=== PATIENT | female | born 1950 ===

== ENCOUNTER 2025-05-01 15:35 | Outpatient (AMB) | payer OTHER, SELFPAY ==
--- OUTSIDE RECORDS SUMMARY | 2025-05-01 16:46 | XMS_ITS | Patient Health Record ---
Author Organization [facility] Address [address] [place] [address] Care Team Providers Care Carrier Operator Name Role Phone JULIO VALDES M.D. Primary Care Provider PATRICIA Pederson Unavailable [phone] Allergies Allergen (clinical drug ingredient) Drug/Non Drug Allergy documented on EMR Reaction Allergy Type Onset Date Status codeine CODEINE Nightmares Drug Allergy Active Reason For Referral No Information Medications Medication SIG (Take, Route, Frequency, Duration) Notes Start Date End Date Status Magnesium 300 MG 1 capsule with a julian l Orally Once a day Active Vitamin K 100 MCG 1 tablet Orally Once a day; Duration: 30 day(s) Active Claritin 10 MG 1 tablet Orally Once a day; Duration: 30 day(s) Active Vitamin B Complex Ac tive Atorvastatin Calcium 20 MG Oral; Duration: 90 Active Calcium + D Active Omeprazole 20 MG as directed Oral Onc e a day prn Active Reclast 5 MG/100ML as directed Intravenous 07/2020 Active Fish Oil 1200MG 1 ORAL daily; Durati on: -3 05/18/2012 Active Flonase 50MCG 2 Nasal daily; Durat ion: -3 02/06/2013 Active Estradiol Vaginal Cream 0.01% 1 Gram Vaginally Twice a week; Duration: 90 days 09/03/2019 Active Multivitamins 1 ORAL daily; Durati on: -3 05/18/2012 Active Losartan Potassium 25 MG 1 tablet Orally Once a day Active Vitamin D 1000 UNIT 1 tablet Orally Once a day Active Social History Tobacco Use: Social History Observation Description Date Details (start date - stop date) Never Smoker NA - NA Tobacco Use/Smoking Question Answer Notes Are you a nonsmoker Alcohol Screen (Audit-C) Question Answer Notes Did you have a drink contain ing alcohol in the past year? Yes How often did you have a dri nk containing alcohol in the past year? 2 to 3 times a week (3 points) How many drinks did you have on a typical day when you were drinking in the past year? 1 or 2 drinks (0 point) Points 3 Interpretation Positive Sexual History Question Answer Notes Had sex in the past 12 months (vaginal, oral, or anal)? 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 CONTRACEPTION: menopause .CE: Smoking: Never a smoker .CE: ALCOHOL: socially drinks alcohol TEXT MESSAGING WHILE DRIVING: no SUNSCREEN: yes ILLICIT DRUGS: no SEATBEALT: yes Problems Problem Type SNOMED Code ICD Code Onset Dates Problem Status W/U Status Risk Notes Problem Postmenopausal atrophic vaginitis (60904999) Postmenopausal atrophic vaginitis (N95.2) Active confirmed Problem Postmenopausal bleeding (77586368) Postmenopausal bleeding (N95.0) Active confirmed Problem Age-related osteoporosis (291230236) Age-related osteoporosis without current pathological fracture (M81.0) Active confirmed Problem Family history of malignant neoplasm of breast (954153830) Family history of malignant neoplasm of breast (Z80.3) Active confirmed Problem Candidal vulvovaginitis (47167873) Candidiasis of vulva and vagina (112.1) Active confirmed Other Problem Benign essential hypertension (0145565) Essential hypertension, benign (401.1) Active confirmed Major Problem Uterine prolapse without vaginal wall prolapse (49800904) Uterine prolapse without mention of vaginal wall prolapse (618.1) Active confirmed Diag Problem Urinary tract infectious disease (disorder) (25536458) Urinary tract infection, site not specified (599.0) Active confirmed Diag Problem Menopausal symptom (46140516) Symptomatic menopausal or female climacteric states (627.2) Active confirmed Major Problem Postmenopausal atrophic vaginitis (91467238) Postmenopausal atrophic vaginitis (627.3) Active confirmed Diag Problem Osteoporosis (62899808) Unspecified osteoporosis (733.00) Active confirmed Diag Problem Gynecological examination normal (472174370001109) Routine gynecological examination (V72.31) Active confirmed Major Problem Screening for malignant neoplasm of colon (320940760) Special screening for malignant neoplasms, colon (V76.51) Active confirmed Major Problem Cystocele (569385072) Cystocele, unspecified (N81.10) Active confirmed Diag Encounters Encounter Location Date Provider Diagnosis [place] [address] [facility] [address] [place] [address] 10/15/2024 PATRICIA WEEKS Mammographic heterogeneous density, bilateral breasts R92.333 Assessments Encounter Date Diagnosis (ICD Code) Assessment Notes Treatment Notes Treatment Clinical Notes Section Notes 10/15/2024 Mammographic heterogeneous density, bilateral breasts (ICD-10 - R92.333) Plan Of Treatment Pending Test Test Name Order Date Ultrasound : Breasts, bilateral 08/23/20 Urinalysis, Complete 04/14/2020 MAMMOGRAM, SCREENING 08/18/2015 Urinalysis 10/09/2020 THIN PREP,HPV,SAJAN IF HPV+ (>29YR)(SCRN) 08/26/2017 Screening Bilateral Breast Ultrasound Screening Bilateral Breast Ultrasound Screening Bilateral Breast Ultrasound Screening Bilateral Breast Ultrasound Screening Bilateral Breast Ultrasound Bilateral Breast MRI 09/10/2022 MM Digital Screening Mammogram 3D 2020 MM Digital Screening Mammogram 3D 2021 MM Digital Screening Mammogram 3D 2023 Future Test Test Name Order Date Bilateral Breast MRI 08/05/2021 Next Appt Details Provider Name:PATRICIA Kaur, 11/01/2025 10:00:00 AM, [address], [address], [place], [address], Insurance Providers Payer Name Payer Address Payer Phone Subscriber Number Group Number Insured Name Patient Relationship to Insured Coverage Start Date Coverage End Date [employer] MEDICARE [address] [place] [address] [phone] [id number] LYNDSEY CALDERÓN Self - patient is the insured Medical (General) History Medical History History ICD Code Postmenopausal atrophic vaginitis N95.2 Cystocele, unspecified N81.10 Age-related osteoporosis without current pathological fracture M81.0 Urinary tract infection, site not specif ied N39.0 Incomplete uterovaginal prolapse N81.2 Essential (primary) hypertension I10 Menopausal and female climacteric states N95.1 Candidiasis of vulva and vagina B37.3 Inconclusive mammogram R92.2 Family history of malignant neoplasm of breast Z80.3 COVID-19 U07.1 Surgical History Surgery Date(Month/Year) [place] [facility] Colonoscopy TVH/BSO, A-P repair, sling, colpocleisis 12/09/20 Hospitalization History Reason Date(Month/Year) 2 Vaginal Deliveries See Surgical Hx
== END 2025-05-01 15:37 | disposition home or self-care (01) ==
LOC: HO.HMGAL 15:35
PROVIDERS: PCP Internal Medicine; Visit Provider Registered Nurse Emergency
DX: J30.89 Other allergic rhinitis (principal)
CPT/HCPCS: 95117; 95165

== ENCOUNTER 2025-05-27 13:40 | Outpatient (AMB) | payer OTHER, SELFPAY | END 2025-05-27 13:41 | disposition home or self-care (01) | LOC: HO.HMGAL 13:40 | PROVIDERS: PCP Internal Medicine; Visit Provider Registered Nurse Emergency | DX: J30.89 Other allergic rhinitis (principal) | CPT/HCPCS: 95117; 95165 ==

== ENCOUNTER 2025-06-24 15:18 | Outpatient (AMB) | payer OTHER, SELFPAY ==
--- OUTSIDE RECORDS SUMMARY | 2025-06-24 19:30 | XMS_ITS | Patient Health Record ---
Author Organization [facility] Address [address] [place] [address] Care Team Providers Care Student Union Consultant Name Role Phone JULIO VALDES M.D. Primary Care Provider PATRICIA Pederson Unavailable [phone] Allergies Allergen (clinical drug ingredient) Drug/Non Drug [...] Status Risk Notes Problem Postmenopausal atrophic vaginitis (61292502) Postmenopausal atrophic vaginitis (N95.2) Active confirmed Problem Postmenopausal bleeding (17251570) Postmenopausal bleeding (N95.0) Active confirmed Problem Age-related osteoporosis (072399967) Age-related osteoporosis without current pathological fracture (M81.0) Active confirmed Problem Family history of malignant neoplasm of breast (426084788) Family history of malignant neoplasm of breast (Z80.3) Active confirmed Problem Candidal vulvovaginitis (36618163) Candidiasis of vulva and vagina (112.1) Active confirmed Other Problem Benign essential hypertension (5962181) Essential hypertension, benign (401.1) Active confirmed Major Problem Uterine prolapse without vaginal wall prolapse (83099464) Uterine prolapse without mention of vaginal wall prolapse (618.1) Active confirmed Diag Problem Urinary tract infectious disease (disorder) (94339479) Urinary tract infection, site not specified (599.0) Active confirmed Diag Problem Menopausal symptom (88395897) Symptomatic menopausal or female climacteric states (627.2) Active confirmed Major Problem Postmenopausal atrophic vaginitis (87942515) Postmenopausal atrophic vaginitis (627.3) Active confirmed Diag Problem Osteoporosis (31920160) Unspecified osteoporosis (733.00) Active confirmed Diag Problem Gynecological examination normal (314328451269686) Routine gynecological examination (V72.31) Active confirmed Major Problem Screening for malignant neoplasm of colon (717534326) Special screening for malignant neoplasms, colon (V76.51) Active confirmed Major Problem Cystocele (872681706) Cystocele, unspecified (N81.10) Active confirmed Diag Encounters Encounter Location Date Provider Diagnosis [place] [address] [facility] [address] [place] [address] 10/15/2024 PATRICIA WEEKS Mammographic heterogeneous density, bilateral [...] Provider Name:PATRICIA Kaur, 11/01/2025 10:00:00 AM, [address] [facility] [address], [address], [place], [address], Insurance Providers Payer Name Payer Address Payer Phone Subscriber Number Group Number Insured Name Patient Relationship to Insured Coverage Start Date Coverage End Date AET[employer] MEDICARE [address] [place] [address] [id number] LYNDSEY CALDERÓN Self - patient is the [...] Z80.3 COVID-19 U07.1 Surgical History Surgery Date(Month/Year) [place] [facility] Colonoscopy TVH/BSO, A-P repair, sling, colpocleisis 12/09/20 Hospitalization History Reason Date(Month/Year) 2 Vaginal Deliveries See Surgical Hx
== END 2025-06-24 15:19 | disposition home or self-care (01) ==
LOC: HO.HMGAL 15:18
PROVIDERS: PCP Internal Medicine; Visit Provider Registered Nurse Emergency
DX: J30.89 Other allergic rhinitis (principal)
CPT/HCPCS: 95117; 95165

== ENCOUNTER 2025-07-24 11:36 | Outpatient (AMB) | payer OTHER, SELFPAY ==
--- OUTSIDE RECORDS SUMMARY | 2025-07-24 22:42 | XMS_ITS | Patient Health Record ---
Author Organization [facility] Address [address] [facility] [address] [facility] [address] [place] [address] Care Team Providers Care Shirt Trimmer Name Role Phone JULIO VALDES M.D. Primary Care Provider PATRICIA Pederson Unavailable [phone] Allergies Allergen (clinical drug ingredient) Drug/Non Drug [...] Status Risk Notes Problem Postmenopausal atrophic vaginitis (90842999) Postmenopausal atrophic vaginitis (N95.2) Active confirmed Problem Postmenopausal bleeding (75340196) Postmenopausal bleeding (N95.0) Active confirmed Problem Age-related osteoporosis (398409781) Age-related osteoporosis without current pathological fracture (M81.0) Active confirmed Problem Family history of malignant neoplasm of breast (248964590) Family history of malignant neoplasm of breast (Z80.3) Active confirmed Problem Candidal vulvovaginitis (36706720) Candidiasis of vulva and vagina (112.1) Active confirmed Other Problem Benign essential hypertension (3236272) Essential hypertension, benign (401.1) Active confirmed Major Problem Uterine prolapse without vaginal wall prolapse (01121711) Uterine prolapse without mention of vaginal wall prolapse (618.1) Active confirmed Diag Problem Urinary tract infectious disease (disorder) (56836255) Urinary tract infection, site not specified (599.0) Active confirmed Diag Problem Menopausal symptom (23379071) Symptomatic menopausal or female climacteric states (627.2) Active confirmed Major Problem Postmenopausal atrophic vaginitis (51266402) Postmenopausal atrophic vaginitis (627.3) Active confirmed Diag Problem Osteoporosis (44614035) Unspecified osteoporosis (733.00) Active confirmed Diag Problem Gynecological examination normal (318999520066177) Routine gynecological examination (V72.31) Active confirmed Major Problem Screening for malignant neoplasm of colon (126756338) Special screening for malignant neoplasms, colon (V76.51) Active confirmed Major Problem Cystocele (948913936) Cystocele, unspecified (N81.10) Active confirmed Diag Encounters Encounter Location Date Provider Diagnosis [place] [address] [facility] [address] [place] [address] 10/15/2024 PATRICIA WEEKS Mammographic heterogeneous density, bilateral [...] Provider Name:PATRICIA Kaur, 11/01/2025 10:00:00 AM, [address] [facility] [facility], [address], [place], [address], Insurance Providers Payer Name Payer Address Payer Phone Subscriber Number Group Number Insured Name Patient Relationship to Insured Coverage Start Date Coverage End Date A[employer]NA MEDICARE [address] [place] [address] [id number] LYNDSEY CALDERÓN Self - patient is the [...] Z80.3 COVID-19 U07.1 Surgical History Surgery Date(Month/Year) [place] Te[facility] Colonoscopy TVH/BSO, A-P repair, sling, colpocleisis 12/09/20 Hospitalization History Reason Date(Month/Year) 2 Vaginal Deliveries See Surgical Hx
== END 2025-07-24 11:37 | disposition home or self-care (01) ==
LOC: HO.HMGAL 11:36
PROVIDERS: PCP Internal Medicine; Visit Provider Registered Nurse Emergency
DX: J30.89 Other allergic rhinitis (principal)
CPT/HCPCS: 95117; 95165

== ENCOUNTER 2025-08-26 13:26 | Outpatient (AMB) | payer OTHER, SELFPAY ==
--- OUTSIDE RECORDS SUMMARY | 2025-08-22 04:40 | XMS_ITS ---
Author Organization [facility] Address [address] [place] [address] Care Team Providers Care Assemblies And Installations Inspector Name Role Phone JULIO VALDES M.D. Primary Care Provider PATRICIA Pederson Unavailable [phone] Allergies Allergen (clinical drug ingredient) Drug/Non Drug Allergy documented on EMR Reaction Allergy Type Onset Date Status codeine CODEINE Nightmares Drug Allergy Active REASON FOR VISIT BURST BLOOD VESSEL IN VAGINAL AREA Medications Medication SIG (Take, Route, Frequency, Duration) Notes Start Date End Date Status Atorvastatin Calcium 10 MG 1 tablet Oral ly Once a day; Duration: 90 days Active Claritin 10 MG 1 tablet Orally Once a day; Duration: 30 day(s) Active Magnesium 300 MG 1 capsule with a julian l Orally Once a day Active Vitamin K 100 MCG 1 tablet Orally Once a day; Duration: 30 day(s) Active Vitamin D 1000 UNIT 1 tablet Orally Once a day Active Calcium + D Active Fish Oil 1200MG 1 ORAL daily; Durati on: -3 05/18/2012 Active Losartan Potassium 25 MG 1 tablet Orally Once a day Active Flonase 50MCG 2 Nasal daily; Durat ion: -3 02/06/2013 Active Multivitamins 1 ORAL daily; Durati on: -3 05/18/2012 Active Estradiol Vaginal Cream 0.01% 1 Gram Vaginally Twice a week; Duration: 90 days 09/03/2019 Active Restasis Active Vitamin B Complex Ac tive Omeprazole 20 MG as directed Oral Onc e a day prn Active Social History Tobacco Use: Social History [...] with Men only Prevention strategies discussed: Other Vital Signs Height 61.00 in 08/22/2025 Weight 131 lbs 08/22/2025 BMI 24.75 kg/m2 08/22/2025 Blood pressure systolic 128 mm Hg 08/22/20 Blood pressure diastolic 78 mm Hg 025 Temperature 97.8 degrees Fahrenheit 08/22/20 25 Encounters Encounter Location Date Provider Diagnosis [facility] [address] [place] [address] 08/22/2025 PATRICIA WEEKS Hemangioma of skin a nd subcutaneous tissue D18.01 Assessments Encounter Date Diagnosis (ICD Code) Assessment Notes Treatment Notes Treatment Clinical Notes Section Notes 08/22/2025 Hemangioma of skin and subcutaneous tissue (ICD-10 - D18.01) Area cleaned and bleeding source identified - treated with silver nitrate (chemical cautery) and direct pressure with excellent hemostasis. She is encouraged to wear loose clothing today and to only blot to dry postvoid. Advised to call with recurrence, but after the close of business, to [facility]. 08/22/2025 Other Plan Of Treatment Treatment Notes Assessment Notes Hemangioma of skin and subcutaneous tiss ue Area cleaned and bleeding source identified - treated with silver nitrate (chemical cautery) and direct pressure with excellent hemostasis. She is encouraged to wear loose clothing today and to only blot to dry postvoid. Advised to call with recurrence, but after the close of business, to report [facility]. Next Appt Details Follow Up: prn, Reason: Provider Name:PATRICIA Kaur, 11/01/2025 10:00:00 AM, [address], [place], [address], Progress Notes * SHIVANI CALDERÓN:1950 ( 75 yo F)Acc No.[id number]:08/22/2025 PROGRESS NOTES Patient: LYNDSEY LUIS Provider: Vega WEEKS MD :1950 A ge:75 Y S ex:Female Date:08/22/2025 Address:[address] [place], [place] [id number] Pcp:JULIO VALDES M.D. Subjective: * Chief Complaints: * B URST BLOOD VESSEL IN VAGINAL AREA * HPI: G YN (Problems): 75 year old female presents with c/o Abnormal bleeding: D ate problem started: 10/23/2024 C urrent bleeding problem: b leeding from a vulvar blood vessel A ssociated signs and symptoms: d enies lightheadedness - she is saturating pads States it is absolutely not vaginal bleeding, as she's had a TVH/BSO, A-P repair, sling, colpocleisis. * ROS: G eneral/Constitutional: Denies C hills. D enies F ever. D enies L ightheadedness. D enies W eight gain. D enies W eight loss. E NT: Denies N osebleed. G astrointestinal: Denies A bdominal pain. D enies B lood in stool.?Denies H ematemesis. D enies R ectal bleeding. H ematology: Denies E asy bruising. D enies F amily member with bleeding problems. W omen Only: Denies I rregular menses. D enies V aginal bleeding between periods. G enitourinary: Denies B lood in urine. 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 S exual activity n ot currently sexually active. L ast Pap Smear: 10/27/16 NIL, NEG HRHPV. M ammogram: 50-75% density, 04/11/23 Breast Ultrasound, 03/28/23 50-75% density, 09/10/21 NICKI Breast MRI, 03/02/21 50-75% density, 02/28/20 50-75% density, 06/07/19 Bilateral Breast U/S, 12/04/18 50-75% density, 10/2017 normal, 05/2018 Rt Breast Aspiration - neg, 10/21/2016 Bilateral Mammo with additional views Rt Breast, 10/17/15 Bilateral Breast MRI, 04/2015 , 50-75% density.? L MP and menses m enopause. H ysterectomy: T VH/BSO 12/09/20. C olonoscopy 2 023, 2011. B one Density: 2 022 PER PT, Per Pt done 2017, 02/[address] Madhuri Barnes, 02/2012. G YN HISTORY MISC. DB LETTER #2 WAS SENT. Edith Score Lifetime Risk = 22.7%. * OB History: T otal pregnancies 2 . T otal living children 2 . N VD 2 . * Surgical History: [place] Colonoscopy TVH/BSO, A-P repair, sling, colpocleisis 12/09/20 * Hospitalization/Major Diagno stic Procedure: 2 Vaginal Deliveries See Surgical Hx * Family History: M other: 96 yrs, Breast Cancer in her 70's; was in a fpc - mentally sharp, but physically shot ; 04/2021. F ather: 76 yrs, Brain Cancer. Sister - Ashley 08/23/48: Breast Cancer in her 40's and again in her 50's, Neg BRCA (Stage 4) Sister- Mamta 11/06/44: Breast Cancer, Post menopausal in her 50's, Neg BRCA BRother - To 09/22/55: Stage 2 Prostate Cancer (dx'd about age 62); Morales's. * Social History: T obacco Use: T obacco Use/Smoking A re you a n onsmoker S exual History: S exual History H ad sex in the past 12 months (vaginal, oral, or anal)? Y es w ith M en only P revention strategies discussed: O ther Details of Sexual History A re you sexually active? Y es D rugs/Alcohol: D rugs H ave you used drugs other than those for medical reasons in the past 12 months? N o Alcohol Screen (Audit-C) D id you have a drink containing alcohol in the past year? Y es H ow often did you have a drink containing alcohol in the past year? 2 to 3 times a week (3 points) H ow many drinks did you have on a typical day when you were drinking in the past year? 1 or 2 drinks (0 point) P oints 3 I nterpretation P ositive M iscellaneous: [place]: yes, 2. Domestic violence: no. Exercise: yes, walking. Home smoke detector use: yes. Living with: spouse. Marital status: , Yaw. Natural support system: yes. 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 Others at home: none. Pets: none. Sexual abuse: no. Sexually active: yes, monogamous relationship. Verbal abuse: no. * Medications: T akingRestasis Vitamin B Complex Calcium + D Fish Oil 1200MG 30 1 ORAL daily Flonase 50MCG 16GM 2 Nasal daily Multivitamins 30 1 ORAL daily Losartan Potassium 25 MG Tablet 1 tablet Orally Once a day Vitamin D 1000 UNIT Tablet 1 tablet Orally Once a day Magnesium 300 MG Capsule 1 capsule with a meal Orally Once a day Vitamin K 100 MCG Tablet 1 tablet Orally Once a day Claritin 10 MG Tablet 1 tablet Orally Once a day Atorvastatin Calcium 10 MG Tablet 1 tablet Orally Once a day Omeprazole 20 MG Capsule Delayed Release as directed Oral Once a day , Notes to Pharmacist: prnEstradiol Vaginal Cream 0.01% Cream 1 Gram Vaginally Twice a week Taking Restasis Taking Vitamin B Complex Taking Calcium + D Taking Fish Oil 1200MG 30 1 ORAL daily Taking Flonase 50MCG 16GM 2 Nasal daily Taking Multivitamins 30 1 ORAL daily Taking Losartan Potassium 25 MG Tablet 1 tablet Orally Once a day Taking Vitamin D 1000 UNIT Tablet 1 tablet Orally Once a day Taking Magnesium 300 MG Capsule 1 capsule with a meal Orally Once a day Taking Vitamin K 100 MCG Tablet 1 tablet Orally Once a day Taking Claritin 10 MG Tablet 1 tablet Orally Once a day Taking Atorvastatin Calcium 10 MG Tablet 1 tablet Orally Once a day Taking Omeprazole 20 MG Capsule Delayed Release as directed Oral Once a day , Notes to Pharmacist: prnTaking Estradiol Vaginal Cream 0.01% Cream 1 Gram Vaginally Twice a week DiscontinuedReclast 5 MG/100ML Solution as directed Intravenous , Notes to Pharmacist: 07/2020Medication List reviewed and reconciled with the patientDiscontinued Reclast 5 MG/100ML Solution as directed Intravenous , Notes to Pharmacist: 07/2020Medication List reviewed and reconciled with the patient * Allergies: C ODEINE: Nightmares - Allergyno[Allergies Verified] Objective: * Vitals: H t: 61.00 in, Wt: 131 lbs, BMI:24.75Index, BP: 128/78 mm Hg, Temp: 97.8 F. * Examination: G eneral Examination: GENERAL APPEARANCE: pleasant, well nourished, in no acute distress, terminal supervisor present in room. SKIN: warm and dry. G enitourinary - Female: ABDOMEN: soft, non-tender, no mass. EXTERNAL GENITALS: normal, multiple tiny hemangiomas present of labia bilaterally, pubic hair with dried blood adherent. Wet 2x2's used to clear dried blood to be able to identify the source of the bleeding - a 2mm site on the mid left labia was identified with recurrent active bleeding. URETHRAL MEATUS: normal. ANUS/PERINEUM: normal. P sychiatry: AFFECT: appropriate. ATTITUDE: cooperative. SPEECH: clear. Assessment: * Assessment: 1. H emangioma of skin and subcutaneous tissue - D18.01 (Primary) S pecify :left vulva Plan: * Treatment: * Procedure Codes: 9 9459 PELVIC EXAMINATION * Preventive Medicine: [facility] ([facility] * Follow Up: p rn * Images: Billing Information: * Visit Code: 12451 Office Visit, Est Pt., Level 3. * Procedure Codes: 01361 PELVIC EXAMINATION. 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 Wet 2x2's used to clear dried blood to be able to identify the source of the bleeding - a 2mm site on the mid left labia was identified with recurrent active bleeding URETHRAL MEATUS: normal ANUS/PERINEUM: normal Psychiatry ATTITUDE: cooperative AFFECT: appropriate SPEECH: clear General Examination GENERAL APPEARANCE: pleasant , well nourished, in no acute distress, terminal supervisor present in room SKIN: warm and dry
--- OUTSIDE RECORDS SUMMARY | 2025-08-26 16:50 | XMS_ITS | Patient Health Record ---
Author Organization [facility] Address [address] [place] [address] Care Team Providers Care Size Worker Name Role Phone JULIO VALDES M.D. Primary Care Provider PATRICIA Pederson Unavailable [phone] Allergies Allergen (clinical drug ingredient) Drug/Non Drug Allergy documented on EMR Reaction Allergy Type Onset Date Status codeine CODEINE Nightmares Drug Allergy Active Reason For Referral No Information Medications Medication SIG (Take, Route, Frequency, Duration) Notes Start Date End Date Status Calcium + D Active Fish Oil 1200MG 1 ORAL daily; Durati on: -05/18/2012 Active Restasis Active Atorvastatin Calcium 10 MG 1 tablet Oral ly Once a day; Duration: 90 days Active Vitamin B Complex Ac tive Omeprazole 20 MG as directed Oral Onc e a day prn Active Claritin 10 MG 1 tablet Orally Once a day; Duration: 30 day(s) Active Estradiol Vaginal Cream 0.01% 1 Gram Vaginally Twice a week; Duration: 90 days 09/03/2019 Active Magnesium 300 MG 1 capsule with a julian l Orally Once a day Active Vitamin K 100 MCG 1 tablet Orally Once a day; Duration: 30 day(s) Active Losartan Potassium 25 MG 1 tablet Orally Once a day Active Vitamin D 1000 UNIT 1 tablet Orally Once a day Active Flonase 50MCG 2 Nasal daily; Durat ion: -3 02/06/2013 Active Multivitamins 1 ORAL daily; Durati on: -05/18/2012 Active Social History Tobacco Use: Social History [...] Status Risk Notes Problem Postmenopausal atrophic vaginitis (65179025) Postmenopausal atrophic vaginitis (N95.2) Active confirmed Problem Postmenopausal bleeding (81001743) Postmenopausal bleeding (N95.0) Active confirmed Problem Age-related osteoporosis (364996677) Age-related osteoporosis without current pathological fracture (M81.0) Active confirmed Problem Family history of malignant neoplasm of breast (292260905) Family history of malignant neoplasm of breast (Z80.3) Active confirmed Problem Candidal vulvovaginitis (13003000) Candidiasis of vulva and vagina (112.1) Active confirmed Other Problem Benign essential hypertension (1062317) Essential hypertension, benign (401.1) Active confirmed Major Problem Uterine prolapse without vaginal wall prolapse (11375416) Uterine prolapse without mention of vaginal wall prolapse (618.1) Active confirmed Diag Problem Urinary tract infectious disease (disorder) (92601517) Urinary tract infection, site not specified (599.0) Active confirmed Diag Problem Menopausal symptom (41111213) Symptomatic menopausal or female climacteric states (627.2) Active confirmed Major Problem Postmenopausal atrophic vaginitis (65844328) Postmenopausal atrophic vaginitis (627.3) Active confirmed Diag Problem Osteoporosis (97447916) Unspecified osteoporosis (733.00) Active confirmed Diag Problem Gynecological examination normal (432197103385856) Routine gynecological examination (V72.31) Active confirmed Major Problem Screening for malignant neoplasm of colon (470112702) Special screening for malignant neoplasms, colon (V76.51) Active confirmed Major Problem Cystocele (123663721) Cystocele, unspecified (N81.10) Active confirmed Diag Vital Signs Temperature 97.8 degrees Fahrenheit 08/22/2025 Blood pressure diastolic 78 mm Hg 08/22/2025 Height 61.00 in 08/22/2025 Blood pressure systolic 128 mm Hg 08/22/2025 Weight 131 lbs 08/22/2025 BMI 24.75 kg/m2 08/22/2025 Encounters Encounter Location Date Provider Diagnosis [address] [address] 08/22/2025 PATRICIA WEEKS Hemangioma of skin a nd subcutaneous tissue D18.[address] [address] 10/15/2024 PATRICIA WEEKS Mammographic heterogeneous density, bilateral breasts R92.[address] [address] 08/22/2025 PATRICIA WEEKS Postmenopausal atrop hic vaginitis N95.2 Assessments Encounter Date Diagnosis (ICD Code) Assessment Notes Treatment Notes Treatment Clinical Notes Section Notes 10/15/2024 Mammographic heterogeneous density, bilateral breasts (ICD-10 - R92.333) 08/22/2025 Hemangioma of skin and subcutaneous tissue (ICD-10 - D18.01) Area cleaned and bleeding source identified - treated with silver nitrate (chemical cautery) and direct pressure with excellent hemostasis. She is encouraged to wear loose clothing today and to only blot to dry postvoid. Advised to call with recurrence, but after the close of business, to report to [facility] for assistance. 08/22/2025 Postmenopausal atrophic vaginitis (ICD-10 - N95.2) 08/22/2025 Other Plan Of Treatment Pending Test Test Name Order Date Ultrasound : Breasts, bilateral 08/23/20 16 Urinalysis, Complete 04/14/2020 MAMMOGRAM, SCREENING 08/18/2015 Urinalysis [...] MRI 08/05/2021 Next Appt Details Provider Name:PATRICIA Vega Kaur, 11/01/2025 10:00:00 AM, [address] [facility], [address], [place], [address], Insurance Providers Payer Name Payer Address Payer Phone Subscriber Number Group Number Insured Name Patient Relationship to Insured Coverage Start Date Coverage End Date [employer]ARE [address] [place] [address] [id number] LYNDSEY CALDERÓN Self - patient is the [...] Z80.3 COVID-19 U07.1 Surgical History Surgery Date(Month/Year) [place] Teeth Colonoscopy TVH/BSO, A-P repair, sling, colpocleisis 12/09/20 Hospitalization History Reason Date(Month/Year) 2 Vaginal Deliveries See Surgical Hx
== END 2025-08-26 13:26 | disposition home or self-care (01) ==
LOC: HO.HMGAL 13:26
PROVIDERS: PCP Internal Medicine; Visit Provider Registered Nurse Emergency
DX: J30.89 Other allergic rhinitis (principal)
CPT/HCPCS: 95117; 95165